=== PATIENT | female | born 1990 | race Caucasian/White ===

== ENCOUNTER 2020-12-21 14:16 | Inpatient (IN) ==
[2020-12-21] MEDS ORDERED: Buffered Lidocaine 1% SYRIN 1 ml INTRADERM ONE (15:13)
[2020-12-21] MEDS ORDERED: Lactated Ringers 1000 ml BAG 1,000 ML IV ONE (15:13)
[2020-12-21] MEDS ORDERED: Dinoprostone 10 MG VAG.SUPP VAGINAL ONE (15:13)
[2020-12-21] MEDS ORDERED: Lactated Ringers 1000 ml BAG 1,000 ML IV SCH (16:00)
[2020-12-22 01:57] LABS: Urine Benzodiazepine Screen None Detected (None Detect); Urine Cannabinoids Screen None Detected (None Detect); Urine Opiates Screen None Detected (None Detect)
[2020-12-22] MEDS ORDERED: Buffered Lidocaine 1% SYRIN 1 ml INTRADERM ONE (19:52)
[2020-12-22 20:28] LABS: ABS Lymphocytes 2.1 10^3/ul (1.0-4.8); ABS Monocytes 1.1 10^3/ul (0-0.8); ABS Neutrophils 11.2 10^3/ul (1.5-7.7); Eosinophil % 0.3 %; Hematocrit 42 % (35-47); Hemoglobin 14.2 g/dL (12.0-16.0); Lymphocyte % 14.7 %; Mean Corpuscular HGB Conc 34 g/dL (31-36); Mean Corpuscular Hemoglobin 34 pg (27-31); Mean Corpuscular Volume 100 fL (80-97); Mean Platelet Volume 8.7 fL (7.4-10.4); Platelet Count 267 10^3/uL (150-450); Red Blood Count 4.19 10^6 /uL (3.70-4.87); Red Cell Distribution Width 13 % (10-15); White Blood Count 14.5 10^3/uL (3.5-10.8)
[2020-12-22] MEDS ORDERED: Oxytocin in LR 20 UNITS/1,000 ML BAG IVPB SCH (21:00)
[2020-12-23] MEDS ORDERED: OBEPIDURAL 250 ML EPIDURAL ONE (01:44)
[2020-12-23] MEDS ORDERED: fentaNYL 100 mcg/2 ml 50 MCG/ML VIAL ONE (02:09)
[2020-12-23] MEDS ORDERED: Phenylephrine 40 mcg/mL 10mL (400mcg) SYRINGE IV PUSH PRN ×2 (02:43)
[2020-12-23] MEDS ORDERED: EPHEDrine (Pressors) 50 MG/ML VIAL IV PUSH PRN ×2 (02:43)
[2020-12-23] MEDS ORDERED: Lactated Ringers 1000 ml BAG 1,000 ML IV ONE (02:43)
[2020-12-23] MEDS ORDERED: Sodium Citrate/Citric Acid LIQ 15 ML UDC PO PRN (02:43)
[2020-12-23] MEDS ORDERED: OBEPIDURAL 250 ML EPIDURAL SCH (03:00)
[2020-12-23] MEDS: Lactated Ringers 1000 ml BAG 1,000 ML IV SCH ×2 (03:04→05:27)
[2020-12-23 03:17] LABS: Urine Appearance Clear; Urine Bilirubin Negative (Negative); Urine Blood Negative (Negative); Urine Color Yellow; Urine Glucose Negative (Negative); Urine Ketones Negative (Negative); Urine Nitrite Negative (Negative); Urine Protein Negative (Negative); Urine Specific Gravity 1.015 (1.002-1.030); Urine Urobilinogen Negative (Negative)
[2020-12-23] MEDS ORDERED: Methylergonovine 0.2 mg AMPULE 1 ml AMP ONE ×2 (07:21→10:34)
[2020-12-23] MEDS ORDERED: Dibucaine 1% OINT 28.35 GM TUBE PR PRN (07:39)
[2020-12-23] MEDS ORDERED: Glycerin ADULT 2.4 gm SUPP PR PRN (07:39)
[2020-12-23] MEDS ORDERED: Witch Hazel PAD JAR TOPICAL PRN (07:39)
[2020-12-23] MEDS ORDERED: Oxytocin in LR 20 UNITS/1,000 ML BAG IVPB SCH (08:00)
[2020-12-23] MEDS ORDERED: Lactated Ringers 1000 ml BAG 1,000 ML IV SCH (08:00)
[2020-12-24 09:30] LABS: ABS Eosinophils 0.1 10^3/ul (0-0.6); ABS Lymphocytes 2.2 10^3/ul (1.0-4.8); ABS Monocytes 0.9 10^3/ul (0-0.8); ABS Neutrophils 8.4 10^3/ul (1.5-7.7); Eosinophil % 1.3 %; Hematocrit 37 % (35-47); Hemoglobin 12.2 g/dL (12.0-16.0); Lymphocyte % 18.8 %; Mean Corpuscular HGB Conc 33 g/dL (31-36); Mean Corpuscular Hemoglobin 34 pg (27-31); Mean Corpuscular Volume 101 fL (80-97); Mean Platelet Volume 8.4 fL (7.4-10.4); Platelet Count 250 10^3/uL (150-450); Red Blood Count 3.63 10^6 /uL (3.70-4.87); Red Cell Distribution Width 13 % (10-15); White Blood Count 11.7 10^3/uL (3.5-10.8)
[2020-12-25 08:02] VITALS: BP 128/78
== END 2020-12-25 12:13 | disposition home or self-care (01) ==
LOC: MCHOBOUT 14:16 → MCHOB 15:11
PROVIDERS: ADMIT Midwife; ATTEND Midwife

== ENCOUNTER 2023-12-23 09:48 | Inpatient (IN) ==
[2023-12-23] MEDS ORDERED: Lidocaine 1% VIAL 10 MG/ML 30 ML VIAL INJ PRN (11:59)
[2023-12-23] MEDS ORDERED: Buffered Lidocaine 1% SYRIN 1 ml INTRADERM ONE (11:59)
[2023-12-23] MEDS: Lactated Ringers 1000 ml BAG 1,000 ML IV ONE (12:07)
[2023-12-23] MEDS ORDERED: Lidocaine 1.5% EPI 1:200,000 30 ML SDV ONE (12:16)
[2023-12-23 12:27] LABS: ABS Eosinophils 0.1 10^3/uL (0.0-0.5); ABS Lymphocytes 1.9 10^3/uL (1.0-4.8); ABS Monocytes 0.9 10^3/uL (0.0-0.9); Eosinophil % 0.7 %; Hematocrit 38.3 % (35-45); Hemoglobin 13.2 g/dL (11.5-14.3); Lymphocyte % 19.4 %; Mean Corpuscular Hemoglobin 32.6 pg (27-33); Mean Corpuscular Hgb Conc 34.4 g/dL (31-36); Mean Corpuscular Volume 94.8 fL (80-97); Mean Platelet Volume 8.6 fL (7.5-11.2); Platelet Count 275 10^3/uL (150-450); Red Blood Count 4.04 10^6/uL (3.63-4.92); Red Cell Distribution Width 13.4 % (12-17); White Blood Count 9.8 10^3/uL (3.8-11.8)
[2023-12-23] MEDS: Lactated Ringers 1000 ml BAG 1,000 ML IV SCH (12:35)
[2023-12-23 12:56] LABS: Urine Benzodiazepine Screen None Detected (None Detect); Urine Cannabinoids Screen None Detected (None Detect); Urine Opiates Screen None Detected (None Detect)
[2023-12-23] MEDS: OBEPIDURAL (200 ML) 200 ML EPIDURAL ONE (12:57)
[2023-12-23] MEDS ORDERED: Lactated Ringers 1000 ml BAG 1,000 ML IV ONE (13:04)
[2023-12-23] MEDS ORDERED: Sodium Citrate/Citric Acid LIQ 15 ML UDC PO PRN (13:04)
[2023-12-23] MEDS ORDERED: Phenylephrine 40 mcg/mL 10mL (400mcg) SYRINGE IV PUSH PRN ×2 (13:04)
[2023-12-23] MEDS ORDERED: Lactated Ringers 1000 ml BAG 1,000 ML IV SCH ×2 (14:00→15:00)
[2023-12-23] MEDS ORDERED: Glycerin ADULT 2.4 gm SUPP PR PRN (14:31)
[2023-12-23] MEDS: Oxytocin in LR 20,000 MILLI.UNIT/1,000 ML BAG IV SCH (15:43)
[2023-12-23] MEDS: Witch Hazel PAD JAR TOPICAL PRN (15:44)
[2023-12-23] MEDS: Dibucaine 1% OINT 28.35 GM TUBE PR PRN (15:44)
[2023-12-23] MEDS: OBEPIDURAL (200 ML) 200 ML EPIDURAL SCH (18:26)
[2023-12-24 06:58] LABS: ABS Eosinophils 0.1 10^3/uL (0.0-0.5); ABS Lymphocytes 1.6 10^3/uL (1.0-4.8); ABS Monocytes 0.8 10^3/uL (0.0-0.9); ABS Neutrophils 7.6 10^3/uL (1.5-7.6); Eosinophil % 0.8 %; Hematocrit 32.9 % (35-45); Hemoglobin 11.1 g/dL (11.5-14.3); Lymphocyte % 15.5 %; Mean Corpuscular Hemoglobin 32.4 pg (27-33); Mean Corpuscular Hgb Conc 33.9 g/dL (31-36); Mean Corpuscular Volume 95.6 fL (80-97); Mean Platelet Volume 8.6 fL (7.5-11.2); Platelet Count 244 10^3/uL (150-450); Red Blood Count 3.44 10^6/uL (3.63-4.92); Red Cell Distribution Width 13.2 % (12-17); White Blood Count 10.1 10^3/uL (3.8-11.8)
[2023-12-24 12:17] VITALS: BP 126/80
== END 2023-12-24 15:05 | disposition home or self-care (01) | DRG 807 ==
LOC: MCHOBOUT 09:48 → MCHOB 11:28
PROVIDERS: ADMIT Midwife